=== PATIENT | male | born 1980 | race Caucasian/White ===

== ENCOUNTER 2018-06-04 11:44 | Inpatient (IN) ==
--- NOTE | 2018-06-04 13:25 | CT ---
EXAM DATE: 06/04/2018 1:10 PM EDT AGE/SEX: 38 years / Male INDICATIONS: Patient viri carvajal, [facility]. Complains of head and neck pain radiating into hands. CLINICAL DATA: This is the patient's initial encounter. Patient reports that signs and symptoms have been present for 1 day and indicates a pain score of 10/10. MEDICAL/SURGICAL HISTORY: None. None. RADIATION DOSE: 35.52 CTDI (mGy) COMPARISON: No prior exams available for comparison. TECHNIQUE: CT of the head without contrast. Using automated exposure control and adjustment of the mA and/or kV according to patient size, radiation dose was kept as low as reasonably achievable to ob tain optimal diagnostic quality images. DICOM format image data is available electronically for revi ew and comparison. FINDINGS: Noncontrast axial head CT demonstrates the ventricles to be normal in size and configuration with a n ormal sulcal pattern. No acute intracranial hemorrhage, acute cortical infarction, mass or midline sh ift is seen. Posterior fossa structures are unremarkable. Bone windows are unremarkable. A prosthetic left globe is present CONCLUSION: No evidence of acute intracranial pathology. No masses are identified. . Electronically signed by: Jass Harrison MD 06/04/2018 1:23 PM EDT
--- NOTE | 2018-06-04 13:32 | CT ---
EXAM DATE: 06/04/2018 1:17 PM EDT AGE/SEX: 38 years / Male INDICATIONS: Patient viri carvajal, [place]. Complains of head and neck pain radiating to his hands. CLINICAL DATA: This is the patient's initial encounter. Patient reports that signs and symptoms have been present for 1 day and indicates a pain score of 10/10. MEDICAL/SURGICAL HISTORY: None. None. RADIATION DOSE: 16.51 CTDI (mGy) COMPARISON: No prior exams available for comparison. TECHNIQUE: Contiguous axial images were obtained using helical multirow detector technique. The vol umetric data was post-processed with multiplanar reconstruction in oblique axial, sagittal, and coron al planes. Using automated exposure control and adjustment of the mA and/or kV according to patient s ize, radiation dose was kept as low as reasonably achievable to obtain optimal diagnostic quality lee ann ges. DICOM format image data is available electronically for review and comparison. FINDINGS: Sagittal images demonstrate normal vertebral body alignment and curvature. The odontoid is intact. Th e occipital condyles and lateral masses of C1 are intact. Axial images were performed from C2-C3 to C7-T1.There is multilevel degenerative disc disease and marginal osteophyte formation maximal at C5- C6. C2-C3: There is osteophytic ridging asymmetric to the left. The neural foramina are clear bilaterall y. C3-C4: There is uncovertebral joint hypertrophy on left side. There is no significant spinal canal s tenosis. C4-C5: There is mild facet arthritis bilaterally. The neural foramina are clear bilaterally. C5-C6: There is uncovertebral joint hypertrophy on the right side. There is moderate neural foramina l narrowing on the right. C6-C7: There is uncovertebral joint hypertrophy on the right side. There is mild facet arthritis prachi aterally. C7-T1: No significant abnormalities identified. CONCLUSION: Mild degenerative changes as described above. There is no evidence of acute fracture. Electronically signed by: Jass Harrison MD 06/04/2018 1:31 PM EDT
[2018-06-04] MEDS ORDERED: Morphine Inj 4 MG/ML Vial IV.PUSH ONE ×2 (13:37→18:37)
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
[2018-06-04 19:41] LABS: Baso # (Auto) 0.1 th/mm3 (0.0-0.2); Baso % (Auto) 0.7 % (0.0-2.0); Eos # (Auto) 0.1 th/mm3 (0.0-0.4); Eos % (Auto) 0.7 % (0.0-4.0); Hematocrit 44.8 % (39.0-51.0); Hemoglobin 14.8 gm/dL (13.0-17.0); Lymph # (Auto) 1.5 th/mm3 (1.0-4.8); Lymph % (Auto) 10.2 % (9.0-44.0); Mean Corpuscular Hemoglobin 31.1 pg (27.0-34.0); Mean Corpuscular Volume 94.2 fL (80.0-100.0); Mean Platelet Volume 8.1 fL (7.0-11.0); Mono # (Auto) 0.8 th/mm3 (0.0-0.9); Mono % (Auto) 5.4 % (0.0-8.0); Neut # (Auto) 12.2 th/mm3 (1.8-7.7); Platelet Count 386 th/mm3 (150-450); Red Blood Count 4.75 mil/mm3 (4.50-5.90); Red Cell Distribution Width 13.5 % (11.6-17.2); White Blood Count 14.7 th/mm3 (4.0-11.0)
[2018-06-04] MEDS ORDERED: Pantoprazole Inj 40 MG Vial IV.PUSH SCH (20:00)
[2018-06-04 20:05] LABS: Anion Gap 8 meq/L (5-15); Blood Urea Nitrogen 7 mg/dL (7-18); C-Reactive Protein 0.39 mg/dL (0.00-0.30); Calcium 8.9 mg/dL (8.5-10.1); Carbon Dioxide 25.5 meq/L (21.0-32.0); Chloride 108 meq/L (98-107); Glomerular Filtration Rate Greater Than 89 mL/min (>89); Glucose,Random 102 mg/dL (74-106); Potassium 3.9 meq/L (3.5-5.1); Sodium 141 meq/L (136-145)
[2018-06-04] MEDS ORDERED: Docusate Sodium 100 MG Capsule PO SCH (21:00)
[2018-06-04] MEDS: Sod Chloride 0.9% Inj 1,000 ML IV.CONT SCH (21:40)
[2018-06-05] MEDS: HYDROmorphone PF Inj 2 MG/ML Vial IV.PUSH PRN ×6 (01:48→20:45)
[2018-06-05] MEDS ORDERED: Chlorhexidine Gluconate 2% 1 Pack (2 Cloths) TOPICAL SCH (04:00)
[2018-06-05] MEDS ORDERED: Chlorhexidine Gluconate 2% 1 Pack (2 Cloths) TOPICAL PRN (04:00)
[2018-06-05 06:51] LABS: Baso # (Auto) 0.1 th/mm3 (0.0-0.2); Baso % (Auto) 0.8 % (0.0-2.0); Eos # (Auto) 0.3 th/mm3 (0.0-0.4); Eos % (Auto) 2.5 % (0.0-4.0); Hematocrit 39.5 % (39.0-51.0); Hemoglobin 13.6 gm/dL (13.0-17.0); Lymph # (Auto) 2.7 th/mm3 (1.0-4.8); Lymph % (Auto) 24.1 % (9.0-44.0); Mean Corpuscular HGB Conc 34.3 % (32.0-36.0); Mean Corpuscular Hemoglobin 32.1 pg (27.0-34.0); Mean Corpuscular Volume 93.5 fL (80.0-100.0); Mean Platelet Volume 8.1 fL (7.0-11.0); Mono # (Auto) 0.7 th/mm3 (0.0-0.9); Mono % (Auto) 6.8 % (0.0-8.0); Neut # (Auto) 7.2 th/mm3 (1.8-7.7); Neut % (Auto) 65.8 % (16.0-70.0); Platelet Count 334 th/mm3 (150-450); Red Blood Count 4.22 mil/mm3 (4.50-5.90)
[2018-06-05] MEDS: Sod Chloride 0.9% Inj 1,000 ML IV.CONT SCH ×2 (07:03→15:33)
[2018-06-05 07:29] LABS: Alanine Aminotransferase 15 U/L (12-78); Albumin 3.2 g/dL (3.4-5.0); Alkaline Phosphatase 85 U/L (45-117); Anion Gap 9 meq/L (5-15); Aspartate Aminotransferase 13 U/L (15-37); Blood Urea Nitrogen 9 mg/dL (7-18); Carbon Dioxide 25.8 meq/L (21.0-32.0); Chloride 109 meq/L (98-107); Glomerular Filtration Rate Greater Than 89 mL/min (>89); Glucose,Random 86 mg/dL (74-106); Potassium 3.5 meq/L (3.5-5.1); Sodium 144 meq/L (136-145); Total Protein 6.7 g/dL (6.4-8.2)
[2018-06-05] MEDS: Famotidine 20 MG Tablet PO SCH ×2 (08:42→20:46)
[2018-06-05] MEDS: Senna/Docusate Sodium 8.6/50 MG Tablet PO SCH ×2 (08:42→20:46)
[2018-06-05] MEDS: Gabapentin 300 MG Capsule PO SCH ×3 (08:42→17:08)
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
[2018-06-05] MEDS: Sertraline 50 MG Tablet PO SCH (13:21)
[2018-06-05] MEDS ORDERED: Chlorhexidine 4% Topical 120 APPLIC/120 ML Bottle TOPICAL ONE (15:20)
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
[2018-06-05] MEDS ORDERED: ceFAZolin 2 GM/NS 100 ML IV; Q8H IV.SIG SCH ×2 (16:00)
[2018-06-05] MEDS ORDERED: Chlorhexidine Gluconate 2% 1 Pack (2 Cloths) TOPICAL ONE (16:12)
[2018-06-05] MEDS ORDERED: Metoprolol Tartrate 25 MG Tablet PO ONE (16:12)
[2018-06-05] MEDS ORDERED: Sodium Chlor 0.9% Inj 500 ML IV.SIG SCH (17:00)
--- NOTE | 2018-06-05 19:36 | XR ---
EXAM DATE: 06/05/2018 7:18 PM EDT AGE/SEX: 38 years / Male INDICATIONS: Evaluate lung status. Recent spine injury. CLINICAL DATA: This is the patient's subsequent encounter. Patient reports that signs and symptoms h ave been present for 2 days and indicates a pain score of 0/10. MEDICAL/SURGICAL HISTORY: None. . Retinal surgeries. COMPARISON: No prior exams available for comparison. FINDINGS: A single AP view of the chest demonstrates the lungs to be symmetrically aerated without evidence of mass, infiltrate or effusion. The cardiomediastinal contours are unremarkable. Osseous structures a re intact. CONCLUSION: Negative examination. Electronically signed by: Juan Solo MD 06/05/2018 7:34 PM EDT
[2018-06-06] MEDS: HYDROmorphone PF Inj 2 MG/ML Vial IV.PUSH PRN ×5 (00:30→22:23)
[2018-06-06 05:03] LABS: Baso # (Auto) 0.1 th/mm3 (0.0-0.2); Baso % (Auto) 1.1 % (0.0-2.0); Eos # (Auto) 0.3 th/mm3 (0.0-0.4); Eos % (Auto) 2.9 % (0.0-4.0); Hematocrit 39.7 % (39.0-51.0); Hemoglobin 13.5 gm/dL (13.0-17.0); Lymph # (Auto) 2.2 th/mm3 (1.0-4.8); Lymph % (Auto) 19.8 % (9.0-44.0); Mean Corpuscular Hemoglobin 31.9 pg (27.0-34.0); Mean Corpuscular Volume 93.8 fL (80.0-100.0); Mean Platelet Volume 8.1 fL (7.0-11.0); Mono # (Auto) 0.9 th/mm3 (0.0-0.9); Mono % (Auto) 8.1 % (0.0-8.0); Neut # (Auto) 7.5 th/mm3 (1.8-7.7); Neut % (Auto) 68.1 % (16.0-70.0); Platelet Count 321 th/mm3 (150-450); Red Blood Count 4.23 mil/mm3 (4.50-5.90); Red Cell Distribution Width 13.2 % (11.6-17.2)
[2018-06-06] MEDS: Sod Chloride 0.9% Inj 1,000 ML IV.CONT SCH ×3 (05:11→22:40)
[2018-06-06 05:33] LABS: Anion Gap 8 meq/L (5-15); Blood Urea Nitrogen 9 mg/dL (7-18); Calcium 8.4 mg/dL (8.5-10.1); Carbon Dioxide 26.6 meq/L (21.0-32.0); Chloride 106 meq/L (98-107); Glomerular Filtration Rate Greater Than 89 mL/min (>89); Glucose,Random 83 mg/dL (74-106); Potassium 3.8 meq/L (3.5-5.1); Sodium 141 meq/L (136-145)
[2018-06-06] MEDS ORDERED: ceFAZolin 2 GM Premix Inj 2 GM/50 ML PIGGYBACK IV.SIG PRN (06:00)
[2018-06-06] MEDS ORDERED: Thrombin Topical Soln 5,000 UNIT Vial TOPICAL ONE (07:15)
[2018-06-06] MEDS ORDERED: ceFAZolin 2 GM Premix Inj 2 GM/50 ML PIGGYBACK IV.SIG ONE (07:15)
[2018-06-06] MEDS ORDERED: Gelatin Size 100 Topical Foam ONE (07:15)
[2018-06-06] MEDS ORDERED: fentaNYL Citrate Inj 100 MCG/2 ML Ampul ONE (08:51)
[2018-06-06] MEDS ORDERED: Phenylephrine/NS 1000 MCG/10ML Syringe IV.PUSH ONE (09:15)
[2018-06-06] MEDS ORDERED: Lidocaine PF 1% Inj 5 ML Syringe OTHER ONE (09:15)
[2018-06-06] MEDS ORDERED: fentaNYL Citrate Inj 250 MCG/5 ML Ampul ONE (10:06)
[2018-06-06] MEDS ORDERED: Sodium Chlor 0.9% Inj 250 ML ONE (10:10)
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
[2018-06-06] MEDS ORDERED: MethylPREDNISolone Sod Succinate Inj 125 MG/2 ML Vial ONE (10:17)
[2018-06-06] MEDS ORDERED: Bisacodyl 10 MG Supp RECTAL PRN (12:12)
--- NOTE | 2018-06-06 12:15 | XR ---
EXAM DATE: 06/06/2018 12:08 PM EDT AGE/SEX: 38 years / Male INDICATIONS: Cervical fusion, C5-6. CLINICAL DATA: This is the patient's initial encounter. Patient reports that signs and symptoms have been present for 1 day and indicates a pain score of Nonresponsive. MEDICAL/SURGICAL HISTORY: None. None. COMPARISON: No prior exams available for comparison. FINDINGS: Patient's intraoperative films demonstrate anterior fusion at C5-6. There is excellent alignment. CONCLUSION: Intraoperative films show anterior cervical fusion at C5-6 Electronically signed by: Hansel Carey MD 06/06/2018 12:14 PM EDT
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
[2018-06-06] MEDS: Gabapentin 300 MG Capsule PO SCH ×3 (12:43→17:17)
[2018-06-06] MEDS: Famotidine 20 MG Tablet PO SCH ×2 (12:43→21:20)
[2018-06-06] MEDS: Senna/Docusate Sodium 8.6/50 MG Tablet PO SCH ×2 (13:08→21:20)
[2018-06-06] MEDS: Sertraline 50 MG Tablet PO SCH (13:09)
[2018-06-06] MEDS ORDERED: ceFAZolin 2 GM Premix Inj 2 GM/50 ML PIGGYBACK IV.SIG SCH (14:00)
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
[2018-06-06] MEDS ORDERED: Propofol Inj 500 MG/50 ML Vial ONE (18:09)
[2018-06-06] MEDS ORDERED: Senna/Docusate Sodium 8.6/50 MG Tablet PO SCH (21:00)
[2018-06-06] MEDS: ceFAZolin 2 GM Premix Inj 2 GM/100 ML BAG IV.SIG SCH (22:29)
[2018-06-07] MEDS: HYDROmorphone PF Inj 2 MG/ML Vial IV.PUSH PRN ×5 (01:02→22:42)
[2018-06-07] MEDS: ceFAZolin 2 GM Premix Inj 2 GM/100 ML BAG IV.SIG SCH (06:41)
[2018-06-07] MEDS: Sod Chloride 0.9% Inj 1,000 ML IV.CONT SCH (07:32)
[2018-06-07] MEDS: Famotidine 20 MG Tablet PO SCH ×2 (08:07→20:00)
[2018-06-07] MEDS: Senna/Docusate Sodium 8.6/50 MG Tablet PO SCH ×2 (08:07→20:00)
[2018-06-07] MEDS: Gabapentin 300 MG Capsule PO SCH ×3 (08:07→17:01)
[2018-06-07] MEDS: Sertraline 50 MG Tablet PO SCH (08:07)
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
[2018-06-07] MEDS ORDERED: Enoxaparin Inj 40 MG/0.4 ML Syringe SQ SCH (18:00)
[2018-06-08] MEDS: HYDROmorphone PF Inj 2 MG/ML Vial IV.PUSH PRN ×2 (04:23→13:59)
[2018-06-08] MEDS: Gabapentin 300 MG Capsule PO SCH ×2 (09:08→13:08)
[2018-06-08] MEDS: Famotidine 20 MG Tablet PO SCH (09:08)
[2018-06-08] MEDS: Sertraline 50 MG Tablet PO SCH (09:08)
[2018-06-08] MEDS: Senna/Docusate Sodium 8.6/50 MG Tablet PO SCH (09:08)
[2018-06-08 12:14] VITALS: BP 127/74; PULSE 74; RESP 18; TEMP 98; O2SAT 98
--- NOTE | 2018-06-08 13:04 | P.DCO ---
- Physical Therapy Order: Evaluate and treat, Improve ambulation, Strength and gait training - Occupational Therapy Order: Evaluate and treat, Improve ADL, Fine motor coordination - Home Health Nursing Order: Nursing assessment with vital signs - Case Management Consult Yes - Certification I have seen patient Ranjeet Ro on 06/08/18. My clinical findings support the need for the requested home health care services because: Limited mobility due to disease progression, Limited ability to care for self, High risk of falls I certify that my clinical findings support that this patient is homebound because: Post-op weakness
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
== END 2018-06-08 15:37 | disposition home health service (06) ==
LOC: NEPC 11:44 → NEDA 11:44 → N05 22:04
PROVIDERS: ADMIT Surgery; ATTEND Surgery